=== PATIENT | female | born 1975 | race Caucasian/White ===

== ENCOUNTER 2016-10-06 13:15 | Emergency (ER) | payer OTHER ==
[2016-10-06 13:24] VITALS: BP 145/87; PULSE 84; RESP 20; TEMP 98.5
--- NOTE | 2016-10-06 13:49 | ED ---
General Adult HPI - General Chief complaint: Extremity Injury, Upper Stated complaint: Slip/Fall Arm Pain Time Seen by Provider: 10/06/16 13:29 Source: patient, RN notes reviewed Mode of arrival: ambulatory Limitations: no limitations - History of Present Illness Initial comments: This is a 41-year-old female who presents with right arm pain that started last night after a fall. Patient states she slipped in her kitchen and landed on a chair with her right arm. Patient states she's been taking Tylenol for the pain. Patient states the pain is worse with lifting her right arm. Patient denies any numbness/tingling or weakness. Patient denies hitting her head or any loss of consciousness. Patient denies any neck or back pain. Patient denies any recent fever, chills, shortness breath, chest pain, abdominal pain, nausea/vomiting/diarrhea, back pain, hematuria, headache, or visual changes, or any other complaints. - Related Data Home Medications Medication Instructions Recorded Confirmed No Known Home Medications [No 10/06/16 10/06/16 Known Home Medications] Allergies Allergy/AdvReac Type Severity Reaction Status Date / Time No Known Allergies Allergy Verified 10/06/16 13:29 Review of Systems ROS Statement: Those systems with pertinent positive or pertinent negative responses have been documented in the HPI. ROS Other: All systems not noted in ROS Statement are negative. Past Medical History Past Medical History: No Reported History History of Any Multi-Drug Resistant Organisms: None Reported Past Surgical History: Tubal Ligation Additional Past Surgical History / Comment(s): BOWEL SURGERY Past Psychological History: No Psychological Hx Reported Smoking Status: Never smoker Past Alcohol Use History: None Reported Past Drug Use History: None Reported General Exam - General Exam Comments Initial Comments: General: The patient is awake and alert, in no distress, and does not appear acutely ill. Neck: The neck is supple, there is no tenderness or JVD. Cardiovascular: There is a regular rate and rhythm. No murmur, rub or gallop is appreciated. Respiratory: Lungs are clear to auscultation, respirations are non-labored, breath sounds are equal. No wheezes, stridor, rales, or rhonchi. Musculoskeletal: There is mild tenderness to palpation over the midshaft right humerus. There is no swelling or ecchymosis. Patient has full range of motion , strength 5/5. Sensation intact. Radial pulses 2+ bilaterally. Neurological: A&O x 3. CN II-XII intact, There are no obvious motor or sensory deficits. Coordination appears grossly intact. Speech is normal. Skin: Skin is warm and dry and no rashes or lesions are noted. Psychiatric: Normal mood and affect. Limitations: no limitations Course Vital Signs 10/06/16 13:22 Temperature 98.5 F Pulse Rate 84 Respiratory 20 Rate Blood Pressure 145/87 O2 Sat by Pulse 100 Oximetry Medical Decision Making - Medical Decision Making This is a 41-year-old female presents with right arm pain. On physical exam There is mild tenderness to palpation over the midshaft right humerus. There is no swelling or ecchymosis. Patient has full range of motion, strength 5/5. Sensation intact. Radial pulses 2+ bilaterally. An x-ray of the right humerus was done and reviewed showing: No acute fracture or dislocation is evident in the right humerus. Reported by Dr. Dejesus. Discussed the results with patient. Discussed rest, ice, elevate and Tylenol and Motrin for pain. I discussed return parameters and occult fracture. Discussed that patient should follow up with PCP in one to 2 days or return to the [facility] for any worsening symptoms or for any further concerns. Patient was receptive to this plan and patient will be discharged home. Disposition Clinical Impression: Pain in right arm Disposition: HOME SELF-CARE Condition: Good Instructions: Arm Pain (ED) Additional Instructions: Please rest, ice, elevate and use Tylenol and Motrin for pain.If symptoms do not improve in the next 7 days repeat x-rays may be needed to rule out occult fracture.Please use medication as discussed. Please follow-up with family doctor in the next 2 days of symptoms have not improved. Please return to emergency room if the symptoms increase or worsen or for any other concerns. Referrals: Shilpa Mcneill MD [Primary Care Provider] - 1-2 days Time of Disposition: 15:00
--- NOTE | 2016-10-06 14:41 | XR ---
EXAMINATION TYPE: XR humerus RT DATE OF EXAM: 10/06/2016 2:21 PM CLINICAL HISTORY: Fall injury with pain. TECHNIQUE: Two views of the right humerus are obtained. COMPARISON: None. FINDINGS: There is no acute fracture or dislocation seen in the right humerus. The right shoulder a nd elbow joints appear within normal limits. The overlying soft tissue appears within normal limits. IMPRESSION: No acute fracture or dislocation is evident in the right humerus.
== END 2016-10-06 14:51 | disposition home or self-care (01) ==
LOC: EC 13:15
DX: M79.601 Pain in right arm (principal); W01.0XXA Fall on same level from slipping, tripping and stumbling without subsequent striking against object, initial encounter; Y92.000 Kitchen of unspecified non-institutional (private) residence as the place of occurrence of the external cause
CPT/HCPCS: 99283